=== PATIENT | female | born 1995 | race Caucasian/White ===

== ENCOUNTER 2022-09-24 16:37 | Emergency (ER) | payer OTHER ==
[~2022-09-24] VITALS: Ht 162.6 cm; Wt 101.6 kg
[2022-09-24 17:13] VITALS: BP_SYST 0; BP_SYST 164; BP_DIAS 117
--- NOTE | 2022-09-24 18:00 | NUR ---
ASSUMED PATIENT CARE, NURSING ASSESSMENT COMPLETED.
[2022-09-24] MEDS ORDERED: IBUP-1842 PO (18:03)
[2022-09-24] MEDS ORDERED: OFLO5SOL27 LEFT EAR (18:03)
--- NOTE | 2022-09-24 18:50 | NUR ---
DISPO AND MEDICAL DECISION MAKING, DC HOME AFTER REMOVAL OF FOREIGN BODY TOP LEFT EAR VIA IRRIGATION WITH STERILE NS.
[2022-09-24 18:51] VITALS: BP 124/50
--- NOTE | 2022-09-24 18:51 | NUR ---
Patient discharged with v/s stable. Written and verbal after care instructions given and explained. Patient alert, oriented and verbalized understanding of instructions. Ambulatory with steady gait. All questions addressed prior to discharge. ID band removed. Patient advised to follow up with PMD. Rx of IBUPROFEN, OFLOXACIN given. Patient educated on indication of medication including possible reaction and side effects. Opportunity to ask questions provided and answered.
== END 2022-09-24 18:51 | disposition home or self-care (01) ==
LOC: MED 16:37
DX: H60.92 Unspecified otitis externa, left ear (principal); Z88.8 Allergy status to other drugs, medicaments and biological substances; Z79.899 Other long term (current) drug therapy
CPT/HCPCS: 99283